=== PATIENT | female | born 1975 | race Caucasian/White ===

== ENCOUNTER 2018-10-22 13:37 | Emergency (ER) | payer SELFPAY ==
[2018-10-22] MEDS ORDERED: Ibuprofen 800 MG TAB ONE (13:58)
== END 2018-10-22 14:03 | disposition home or self-care (01) ==
LOC: MADERS 13:37
DX: S39.011A Strain of muscle, fascia and tendon of abdomen, initial encounter (principal); E66.9 Obesity, unspecified; V49.9XXA Car occupant (driver) (passenger) injured in unspecified traffic accident, initial encounter
CPT/HCPCS: 99283